=== PATIENT | female | born 1955 | race Caucasian/White ===

== ENCOUNTER → 2017-04-09 | Outpatient (CLI) | payer OTHER ==
[~2017-04-09] MED LIST: ALBU0.63 NEB; ASPI500T10 PO; LISI-167 PO; MOME220A2 INH; SERT100T5 PO
== END | disposition home or self-care (01) ==
LOC: CFH 10:08
PROVIDERS: ATTEND Internal Medicine
DX: Z12.31 Encounter for screening mammogram for malignant neoplasm of breast (principal); Z80.3 Family history of malignant neoplasm of breast
CPT/HCPCS: G0202